=== PATIENT | male | born 1990 | race Caucasian/White ===

== ENCOUNTER 2018-12-09 16:56 | Emergency (ER) | payer BC ==
[2018-12-09 17:16] VITALS: PULSE 88; TEMP 98.8
[2018-12-09] MEDS ORDERED: ceFAZolin IN SWFI 2 GM/20 ML SYRINGE IVP STA (17:27)
--- NOTE | 2018-12-09 17:29 | ED ---
Skin/Abscess/FB HPI - General Chief complaint: Skin/Abscess/Foreign Body Stated complaint: elbow infection Time Seen by Provider: 12/09/18 17:21 Source: patient, RN notes reviewed, old records reviewed Mode of arrival: ambulatory Limitations: no limitations - History of Present Illness Initial comments: Patient is a 28-year-old male presents emergency department today with complaints of left elbow infection. Patient was seen yesterday by medics breath and started on Keflex and Bactrim. He's had 3 total doses. He was told to come to emergency department if the area of redness continues to spread. Patient reports that today the area of redness has spread up his bicep. Patient states they did slightly open up the wound and had some purulent fluid is collected. Patient states he try to open up the wound again for himself today. And had some green-yellow pus drained from the site. He works as a [employer] mechanic. He reports that the area started as a small pimple 3 days ago. He doesn't know if he cut it while he was at work. His vaccines are up-to-date. He denies any pain with range of motion of the elbow or forearm. - Related Data Home Medications Medication Instructions Recorded Confirmed Cephalexin [Keflex] 500 mg PO Q8HR 12/09/18 12/09/18 Sulfamethoxazole/Trimethoprim 1 tab PO BID 12/09/18 12/09/18 [Bactrim DS 800-160 mg] Previous Rx's Medication Instructions Recorded Sulfamethox-Tmp 800-160Mg [Bactrim 2 tab PO Q12HR #40 tab 12/09/18 DS 800-160 mg] Allergies Allergy/AdvReac Type Severity Reaction Status Date / Time No Known Allergies Allergy Verified 12/09/18 18:02 Review of Systems ROS Statement: Those systems with pertinent positive or pertinent negative responses have been documented in the HPI. ROS Other: All systems not noted in ROS Statement are negative. Past Medical History Past Medical History: No Reported History History of Any Multi-Drug Resistant Organisms: None Reported Past Surgical History: No Surgical Hx Reported Past Psychological History: No Psychological Hx Reported Smoking Status: Never smoker Past Alcohol Use History: None Reported Past Drug Use History: None Reported General Exam - General Exam Comments Initial Comments: This is a 28-year-old male. Alert and oriented 3. Patient appears in no significant distress. Limitations: no limitations General appearance: alert, in no apparent distress Head exam: Present: atraumatic, normocephalic, normal inspection Eye exam: Present: normal appearance, PERRL, EOMI. Absent: scleral icterus, conjunctival injection, periorbital swelling ENT exam: Present: normal exam, mucous membranes moist Neck exam: Present: normal inspection. Absent: tenderness, meningismus, lymphadenopathy Respiratory exam: Present: normal lung sounds bilaterally. Absent: respiratory distress, wheezes, rales, rhonchi, stridor Cardiovascular Exam: Present: regular rate, normal rhythm, normal heart sounds. Absent: systolic murmur, diastolic murmur, rubs, gallop, clicks GI/Abdominal exam: Present: soft, normal bowel sounds. Absent: distended, tenderness, guarding, rebound, rigid Extremities exam: Present: normal inspection, full ROM, normal capillary refill. Absent: tenderness, pedal edema, joint swelling, calf tenderness Left Upper Arm exam: Present: erythema (Patient has some erythema setting up the bicep consistent with cellulitis.) Elbow exam: Present: normal inspection, full ROM, erythema Forearm Wrist exam: Present: tenderness, swelling, erythema ( has cellulitic changes over the left forearm with a central area of abscess measuring 3 cm x 4 7 days. The area is open and draining at this time.). Absent: normal inspection Hand Wrist exam: Present: normal inspection, full ROM Back exam: Present: normal inspection Course Vital Signs 12/09/18 17:12 Temperature 98.8 F Pulse Rate 88 Respiratory 16 Rate Blood Pressure 117/71 O2 Sat by Pulse 98 Oximetry Procedures - Incision & Drainage Site: upper extremity (L elbow) Size (cm): 3 Anesthetic Used: lidocaine 1% Amount (mLs): 10 I&D Cleaning Method: Iodine Sterile Field Used?: Yes Scalpel Used: #11 Needle Aspiration Performed?: Yes Irrigation Performed?: Yes I&D Drainage Obtained: Pus, Blood Packing: Iodoform Culture Obtained?: Yes Patient Tolerated Procedure: well, no complications Medical Decision Making - Medical Decision Making Patient is a 28-year-old male who presents emergency department today with complaints of left elbow pain and swelling. He started Keflex and Bactrim. His evidence of a central abscess measuring 2 cm with surrounding cellulitis of the mid forearm and bicep area. Patient has full range motion of the elbow. Culture was obtained at this time. Patient has only had 3 doses of antibiotic. I discussed that he has not filled outpatient treatment at time. Vital signs are stable. Patient's wound was opened and aerobic wound culture was completed. Approximately 2 mL of firm white cystlike material was removed. Patient was given a dose of 2 g of Kefzol. Patient has been a close follow-up with primary care physician. Discussed with this time increasing his Bactrim dose to 2 tablets twice a day and continuing Keflex. Discussed if there is worsening redness and swelling in the next 24-48 hours that he should return for IV antibiotics. Patient agrees to treatment plan will comply. Return parameters were discussed. - Lab Data Result diagrams: 12/09/18 17:45 12/09/18 17:45 Lab Results 12/09/18 12/09/18 12/09/18 Range/Units 17:45 17:45 17:45 WBC 10.6 (3.8-10.6) k/uL RBC 5.73 (4.30-5.90) m/uL Hgb 15.6 (13.0-17.5) gm/dL Hct 47.0 (39.0-53.0) % MCV 82.0 (80.0-100.0) fL MCH 27.2 (25.0-35.0) pg MCHC 33.2 (31.0-37.0) g/dL RDW 12.9 (11.5-15.5) % Plt Count 259 (150-450) k/uL Neutrophils % 69 % Lymphocytes % 21 % Monocytes % 5 % Eosinophils % 3 % Basophils % 1 % Neutrophils # 7.3 (1.3-7.7) k/uL Lymphocytes # 2.2 (1.0-4.8) k/uL Monocytes # 0.5 (0-1.0) k/uL Eosinophils # 0.3 (0-0.7) k/uL Basophils # 0.1 (0-0.2) k/uL Sodium 140 (137-145) mmol/L Potassium 4.2 (3.5-5.1) mmol/L Chloride 105 (98-107) mmol/L Carbon Dioxide 24 (22-30) mmol/L Anion Gap 11 mmol/L BUN 17 (9-20) mg/dL Creatinine 1.03 (0.66-1.25) mg/dL Est GFR (CKD-EPI)AfAm >90 (>60 ml/min/1.73 sqM) Est GFR (CKD-EPI)NonAf >90 (>60 ml/min/1.73 sqM) Glucose 90 (74-99) mg/dL Plasma Lactic Acid Oscar 1.3 (0.7-2.0) mmol/L Calcium 9.9 (8.4-10.2) mg/dL Total Bilirubin 0.6 (0.2-1.3) mg/dL AST 38 (17-59) U/L ALT 56 (21-72) U/L Alkaline Phosphatase 49 (38-126) U/L Total Protein 8.6 H (6.3-8.2) g/dL Albumin 4.6 (3.5-5.0) g/dL Disposition Clinical Impression: Left arm cellulitis, Infected epidermoid cyst Disposition: HOME SELF-CARE Condition: Good Instructions (If sedation given, give patient instructions): Abscess (ED), Cellulitis (ED) Additional Instructions: Patient advised that close follow-up with primary care physician. Patient should return to emergency department if any alarming signs or symptoms occur. Patient needs to be monitored if there is any worsening redness and swelling w ithin the next 24-48 hours he may need to return for IV antibiotics. Patient should take Motrin and Tylenol for pain. Ice the area for swelling. Prescriptions: Sulfamethox-Tmp 800-160Mg [Bactrim DS 800-160 mg] 2 tab PO Q12HR #40 tab Is patient prescribed a controlled substance at d/c from ED?: No Referrals: None,Stated [REFERRING] - 1-2 days Telma Caceres MD [STAFF PHYSICIAN] - 1-2 days Time of Disposition: 18:59
[2018-12-09 18:17] LABS: ALT 56 U/L (21-72); AST 38 U/L (17-59); Albumin 4.6 g/dL (3.5-5.0); Alkaline Phosphatase 49 U/L (38-126); Anion Gap 11 mmol/L; Blood Urea Nitrogen 17 mg/dL (9-20); Calcium 9.9 mg/dL (8.4-10.2); Carbon Dioxide 24 mmol/L (22-30); Chloride 105 mmol/L (98-107); Glucose 90 mg/dL (74-99); Potassium 4.2 mmol/L (3.5-5.1); Sodium 140 mmol/L (137-145); Total Bilirubin 0.6 mg/dL (0.2-1.3); Total Protein 8.6 g/dL (6.3-8.2)
[2018-12-09 18:33] LABS: Basophils # (A) 0.1 k/uL (0-0.2); Basophils % (A) 1 %; Eosinophils # (A) 0.3 k/uL (0-0.7); Eosinophils % (A) 3 %; HGB 15.6 gm/dL (13.0-17.5); Lymphocytes # (A) 2.2 k/uL (1.0-4.8); Lymphocytes % (A) 21 %; MCH 27.2 pg (25.0-35.0); MCHC 33.2 g/dL (31.0-37.0); Mean Platelet Volume 6.7; Monocytes # (A) 0.5 k/uL (0-1.0); Monocytes % (A) 5 %; Neutrophils # (A) 7.3 k/uL (1.3-7.7); Neutrophils % (A) 69 %; Platelet Count 259 k/uL (150-450); RBC 5.73 m/uL (4.30-5.90); RDW 12.9 % (11.5-15.5); WBC 10.6 k/uL (3.8-10.6)
[2018-12-09 19:11] VITALS: BP 126/74; RESP 15
== END 2018-12-09 19:10 | disposition home or self-care (01) ==
LOC: EC 16:56
DX: L03.114 Cellulitis of left upper limb (principal); L72.0 Epidermal cyst
CPT/HCPCS: 36415; 80053; 83605; 85025; 87040; 87070; 87205; 87077; 87186; 99284; 10060; 96374; J0690